=== PATIENT | female | born 1995 | race Caucasian/White ===

== ENCOUNTER 2019-06-04 22:49 | Inpatient (IN) | payer BC ==
[~2019-06-04] VITALS: Ht 167.6 cm; Wt 53.8 kg
[2019-06-05 02:30] VITALS: BP 99/55
--- NOTE | 2019-06-05 02:45 | NUR ---
NURSE NOTES: Received patient as a direct admission from [facility]. Patient arrived via gurney. Patient awake and alert x4. On room air with no signs of distress or SOB. Skin intact. Belongings checked alongside patient and accounted for. Belongings list signed by patient. Patient is ambulatory with a steady gate. IV noted in the Right AC 20g. No C/O pain at this time. Bed locked and in lowest position. Call light in reach. Will continue to monitor. Contacted Dr. Lerma for admission orders - awaiting callback. VS -- BP:99/55 O2:98% HR:97 Temp:98.1 RR:20
[2019-06-05] MEDS ORDERED: RITALIN5 MG ORAL (02:56)
[2019-06-05 04:00] VITALS: BP 111/68
--- NOTE | 2019-06-05 04:40 | NUR ---
NURSE NOTES: Patient's temp 100.8. Left message for Dr. Lerma. Awaiting callback.
[2019-06-05] MEDS ORDERED: RITALIN10 MG ORAL (06:26)
--- NOTE | 2019-06-05 06:55 | NUR ---
NURSE NOTES: Orders received from Dr. Lerma. Will follow plan of care.
--- NOTE | 2019-06-05 07:12 | NUR ---
HAND-OFF: Report given to Pacheco Capone RN.
[2019-06-05 07:39] LABS: BASOPHILS % (AUTO) 0.3 % (0.0-2.0); EOSINOPHILS % (AUTO) 0.1 % (0.0-3.0); HEMATOCRIT 33.4 % (37.0-47.0); HEMOGLOBIN 11.2 G/DL (12.0-16.0); LYMPHOCYTES % (AUTO) 13.7 % (20.0-45.0); MEAN CORPUSCULAR VOLUME 79 FL (80-99); MONOCYTES % (AUTO) 11.8 % (1.0-10.0); NEUTROPHILS % (AUTO) 74.1 % (45.0-75.0); PLATELET COUNT 162 K/UL (150-450); RED BLOOD COUNT 4.21 M/UL (4.20-5.40); RED CELL DISTRIBUTION WIDTH 12.4 % (11.6-14.8); WHITE BLOOD COUNT 3.7 K/UL (4.8-10.8)
[2019-06-05 07:57] LABS: ALANINE AMINOTRANSFERASE 23 U/L (12-78); ALBUMIN 3.2 G/DL (3.4-5.0); ALBUMIN/GLOBULIN RATIO 1.1 (1.0-2.7); ALKALINE PHOSPHATASE 44 U/L (46-116); ANION GAP 10 mmol/L (5-15); ASPARTATE AMINO TRANSFERASE 30 U/L (15-37); BILIRUBIN,TOTAL 0.4 MG/DL (0.2-1.0); BLOOD UREA NITROGEN 11 mg/dL (7-18); CALCIUM 7.8 MG/DL (8.5-10.1); CARBON DIOXIDE 22 MMOL/L (21-32); CHLORIDE 107 MMOL/L (98-107); CREATININE 0.9 MG/DL (0.55-1.30); PHOSPHORUS 3.3 MG/DL (2.5-4.9); POTASSIUM 4.1 MMOL/L (3.5-5.1); SODIUM 139 MMOL/L (136-145)
[2019-06-05 08:00] VITALS: BP 110/68
[2019-06-05] MEDS: Oseltamivir 75mg cap ORAL SCH ×2 (08:25→20:05)
[2019-06-05] MEDS: cefTRIAXone 1gm/D5W 55ml IVPB SCH ×2 (08:26)
[2019-06-05] MEDS: D5 1/2NS w/KCl 20mEq 1,000 ML IV SCH ×2 (08:26→18:20)
--- NOTE | 2019-06-05 10:00 | NUR ---
NURSE NOTES: PT WAS EDUCATED ON NEW MEDICATION ORDERS AND PT VERBALIZED UNDERSTANDING. IN NO APPARENT DISTRESS AT THIS TIME. EDUCATED ON HOW TO USE CALL LIGHT FOR ASSISTANCE. PT VERBALIZED UNDERSTANDING. BED IN LOWEST POSITION WITH BEDSIDE RAILS X2 RAISED. PT IS AMBULATORY WITH STEADY GAIT. WILL CONTINUE TO MONITOR.
[2019-06-05 12:00] VITALS: BP 108/68
[2019-06-05] MEDS: HYDROcodone/Acetamin 5/325 tab ORAL PRN ×2 (12:57→22:57)
--- NOTE | 2019-06-05 13:29 | Consultation ---
History of Present Illness General Date patient seen: Jun 05, 2019 Present Illness HPI 23 year old female with hx of ADD, drug abuse presented to [facility], with flu like symptoms, headache, running nose, fatigue, fever. He was diagnosed to have presumptive flu and transferred to [place] for further treatment. Allergies: Coded Allergies: No Known Allergies (Unverified , 05/16/19) Medication History Scheduled Methylphenidate Hcl* (Ritalin*), 10 MG ORAL TWICE A DAY, (Reported) Discontinued Medications Methylphenidate Hcl* (Ritalin*), Unknown Dose ORAL DAILY, (Reported) Discontinued Reason: Prescription changed Patient History Healthcare decision maker Resuscitation status Advanced Directive on File Past Medical/Surgical History Past Medical/Surgical History: (1) Drug abuse (2) ADD (attention deficit disorder) Review of Systems All Other Systems: negative except mentioned in HPI Physical Exam General Appearance: thin Lines, tubes and drains: peripheral HEENT: normocephalic, atraumatic Neck: non-tender, normal alignment Respiratory/Chest: chest wall non-tender, lungs clear Breasts: no masses Cardiovascular/Chest: normal peripheral pulses Abdomen: normal bowel sounds, non tender Genitourinary/Rectal: normal genital exam Extremities: normal range of motion Skin Exam: normal pigmentation 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 Last 24 Hour Vital Signs Date Time Temp Pulse Resp B/P (MAP) Pulse Ox O2 Delivery O2 Flow Rate FiO2 06/05/19 12:00 100.0 101 18 108/68 (81) 99 06/05/19 09:00 Room Air 06/05/19 08:00 101.5 106 18 110/68 (82) 95 06/05/19 07:42 101.5 06/05/19 04:00 100.8 103 20 111/68 (82) 99 06/05/19 02:33 Room Air 06/05/19 02:30 98.1 97 20 99/55 (70) 98 Intake and Output 06/04/19 06/05/19 19:00 07:00 Intake Total 100 ml Balance 100 ml Intake Oral 100 ml Laboratory Tests Test 06/05/19 07:25 White Blood Count 3.7 K/UL (4.8-10.8) L Red Blood Count 4.21 M/UL (4.20-5.40) Hemoglobin 11.2 G/DL (12.0-16.0) L Hematocrit 33.4 % (37.0-47.0) L Mean Corpuscular Volume 79 FL (80-99) L Mean Corpuscular Hemoglobin 26.6 PG (27.0-31.0) L Mean Corpuscular Hemoglobin Concent 33.6 G/DL (32.0-36.0) Red Cell Distribution Width 12.4 % (11.6-14.8) Platelet Count 162 K/UL (150-450) Mean Platelet Volume 7.3 FL (6.5-10.1) Neutrophils (%) (Auto) 74.1 % (45.0-75.0) Lymphocytes (%) (Auto) 13.7 % (20.0-45.0) L Monocytes (%) (Auto) 11.8 % (1.0-10.0) H Eosinophils (%) (Auto) 0.1 % (0.0-3.0) Basophils (%) (Auto) 0.3 % (0.0-2.0) Sodium Level 139 MMOL/L (136-145) Potassium Level 4.1 MMOL/L (3.5-5.1) Chloride Level 107 MMOL/L (98-107) Carbon Dioxide Level 22 MMOL/L (21-32) Anion Gap 10 mmol/L (5-15) Blood Urea Nitrogen 11 mg/dL (7-18) Creatinine 0.9 MG/DL (0.55-1.30) Estimat Glomerular Filtration Rate > 60 mL/min (>60) Glucose Level 94 MG/DL (74-106) Calcium Level 7.8 MG/DL (8.5-10.1) L Phosphorus Level 3.3 MG/DL (2.5-4.9) Magnesium Level 1.8 MG/DL (1.8-2.4) Total Bilirubin 0.4 MG/DL (0.2-1.0) Aspartate Amino Transf (AST/SGOT) 30 U/L (15-37) Alanine Aminotransferase (ALT/SGPT) 23 U/L (12-78) Alkaline Phosphatase 44 U/L (46-116) L Total Protein 6.1 G/DL (6.4-8.2) L Albumin 3.2 G/DL (3.4-5.0) L Globulin 2.9 g/dL Albumin/Globulin Ratio 1.1 (1.0-2.7) Height (Feet): 5 Height (Inches): 6.00 Weight (Pounds): 119 Medications Current Medications Medications (Trade) Dose Ordered Sig/Jillian Route PRN Reason Start Time Stop Time Status Last Admin Dose Admin Acetaminophen (Tylenol) 650 mg Q6H PRN ORAL Mild Pain/Temp > 100.5 06/05/19 07:00 07/05/19 06:59 06/05/19 07:12 Acetaminophen/ Hydrocodone Bitart ([place] 5/325) 1 tab Q6H PRN ORAL Pain 4-10 06/05/19 07:00 06/12/19 06:59 06/05/19 12:57 Ceftriaxone Sodium 1 gm/ Dextrose 55 ml @ 110 mls/hr Q24H IVPB 06/05/19 09:00 06/12/19 08:59 06/05/19 08:26 Dextrose/ Electrolytes 1,000 ml @ 100 mls/hr Q10H IV 06/05/19 08:00 07/05/19 07:59 06/05/19 08:26 Ondansetron HCl (Zofran) 4 mg Q4H PRN IVP Nausea & Vomiting 06/05/19 07:00 07/05/19 06:59 06/05/19 12:53 Oseltamivir Phosphate (Tamiflu) 75 mg Q12HR ORAL 06/05/19 09:00 06/10/19 08:59 06/05/19 08:25 Assessment/Plan Problem List: (1) Pneumonia ICD Codes: J18.9 - Pneumonia, unspecified organism SNOMED: 352153172 (2) ADD (attention deficit disorder) ICD Codes: F98.8 - Other specified behavioral and emotional disorders with onset usually occurring in childhood and adolescence SNOMED: 74710138 (3) Drug abuse ICD Codes: F19.10 - Other psychoactive substance abuse, uncomplicated SNOMED: 56566627 (4) Influenza A ICD Codes: J10.1 - Influenza due to other identified influenza virus with other respiratory manifestations SNOMED: 439258221 Assessment/Plan: respiratory treatment check sputum repeat cxr in am symptomatic treatment Donna Pappas MD Jun 05, 2019 13:29
[2019-06-05] MEDS ORDERED: Albuterol/Ipratropium 3ml neb HHN PRN (13:30)
[2019-06-05 16:00] VITALS: BP 112/61
--- NOTE | 2019-06-05 16:15 | Consultation ---
History of Present Illness General Date patient seen: Jun 05, 2019 Present Illness HPI 23 y/o F with hx of AHDD, anxiety disorder is transferred from [place] ED to [place] on 06/05 with fever, myalgias after taking Ectasy the night prior. CXR at [facility] showed no infiltrate (prelim read). Reported INfluenza positive, did not saw test results on records sent. Denied CP, abd pain, nausea, vomiting, diarrhea or urinary complaints. Allergies: Coded Allergies: No Known Allergies (Unverified , 05/16/19) Medication History Scheduled Methylphenidate Hcl* (Ritalin*), 10 MG ORAL TWICE A DAY, (Reported) Discontinued Medications Methylphenidate Hcl* (Ritalin*), Unknown Dose ORAL DAILY, (Reported) Discontinued Reason: Prescription changed Patient History Healthcare decision maker Resuscitation status Advanced Directive on File Patient History Narrative Pmhx: as above Shx: reviewed Fhx: non contributory Physical Exam Last 24 Hour Vital Signs Date Time Temp Pulse Resp B/P (MAP) Pulse Ox O2 Delivery O2 Flow Rate FiO2 06/05/19 12:00 100.0 101 18 108/68 (81) 99 06/05/19 09:00 Room Air 06/05/19 08:00 101.5 106 18 110/68 (82) 95 06/05/19 07:42 101.5 06/05/19 04:00 100.8 103 20 111/68 (82) 99 06/05/19 02:33 Room Air 06/05/19 02:30 98.1 97 20 99/55 (70) 98 Intake and Output 06/04/19 06/05/19 19:00 07:00 Intake Total 100 ml Balance 100 ml Intake Oral 100 ml Laboratory Tests Test 06/05/19 07:25 White Blood Count 3.7 K/UL (4.8-10.8) L Red Blood Count 4.21 M/UL (4.20-5.40) Hemoglobin 11.2 G/DL (12.0-16.0) L Hematocrit 33.4 % (37.0-47.0) L Mean Corpuscular Volume 79 FL (80-99) L Mean Corpuscular Hemoglobin 26.6 PG (27.0-31.0) L Mean Corpuscular Hemoglobin Concent 33.6 G/DL (32.0-36.0) Red Cell Distribution Width 12.4 % (11.6-14.8) Platelet Count 162 K/UL (150-450) Mean Platelet Volume 7.3 FL (6.5-10.1) Neutrophils (%) (Auto) 74.1 % (45.0-75.0) Lymphocytes (%) (Auto) 13.7 % (20.0-45.0) L Monocytes (%) (Auto) 11.8 % (1.0-10.0) H Eosinophils (%) (Auto) 0.1 % (0.0-3.0) Basophils (%) (Auto) 0.3 % (0.0-2.0) Sodium Level 139 MMOL/L (136-145) Potassium Level 4.1 MMOL/L (3.5-5.1) Chloride Level 107 MMOL/L (98-107) Carbon Dioxide Level 22 MMOL/L (21-32) Anion Gap 10 mmol/L (5-15) Blood Urea Nitrogen 11 mg/dL (7-18) Creatinine 0.9 MG/DL (0.55-1.30) Estimat Glomerular Filtration Rate > 60 mL/min (>60) Glucose Level 94 MG/DL (74-106) Calcium Level 7.8 MG/DL (8.5-10.1) L Phosphorus Level 3.3 MG/DL (2.5-4.9) Magnesium Level 1.8 MG/DL (1.8-2.4) Total Bilirubin 0.4 MG/DL (0.2-1.0) Aspartate Amino Transf (AST/SGOT) 30 U/L (15-37) Alanine Aminotransferase (ALT/SGPT) 23 U/L (12-78) Alkaline Phosphatase 44 U/L (46-116) L Total Protein 6.1 G/DL (6.4-8.2) L Albumin 3.2 G/DL (3.4-5.0) L Globulin 2.9 g/dL Albumin/Globulin Ratio 1.1 (1.0-2.7) Height (Feet): 5 Height (Inches): 6.00 Weight (Pounds): 119 Medications Current Medications Medications (Trade) Dose Ordered Sig/Jillian Route PRN Reason Start Time Stop Time Status Last Admin Dose Admin Acetaminophen (Tylenol) 650 mg Q6H PRN ORAL Mild Pain/Temp > 100.5 2/3/20 07:00 07/05/19 06:59 06/05/19 14:46 Acetaminophen/ Hydrocodone Bitart ([place] 5/325) 1 tab Q6H PRN ORAL Pain 4-10 06/05/19 07:00 06/12/19 06:59 06/05/19 12:57 Albuterol/ Ipratropium (Albuterol/ Ipratropium) 3 ml Q4H PRN HHN Shortness of Breath 06/05/19 13:30 06/10/19 13:29 Ceftriaxone Sodium 1 gm/ Dextrose 55 ml @ 110 mls/hr Q24H IVPB 06/05/19 09:00 06/12/19 08:59 06/05/19 08:26 Dextrose/ Electrolytes 1,000 ml @ 100 mls/hr Q10H IV 06/05/19 08:00 07/05/19 07:59 06/05/19 08:26 Ondansetron HCl (Zofran) 4 mg Q4H PRN IVP Nausea & Vomiting 06/05/19 07:00 07/05/19 06:59 06/05/19 12:53 Oseltamivir Phosphate (Tamiflu) 75 mg Q12HR ORAL 06/05/19 09:00 06/10/19 08:59 06/05/19 08:25 Promethazine HCl/ Codeine (Phenergan with Codeine) 5 ml Q4H PRN ORAL For Cough 06/05/19 13:30 07/05/19 13:29 Assessment/Plan Assessment/Plan: Abx: Tamiflu 06/05- Ceftriaxone 06/05- Assessment: Sepsis Influenza (per [facility] report) Fever Mild leukopenia -u/a (at [facility]) neg -CXR (at [facility])- prelim read no infiltrates Mild anemia UDS + methamphetamines, amphetamines AHDD anxiety disorder Plan: -Continue Tamiflu and Ceftriaxone #1 -f/u cx -Monitor CBC/CMP, temperatures -Bcx, influenza sc, CXR Thank you for this consultation. Will continue to follow along with you. Discussed with Radha Chery M.D. Jun 05, 2019 16:15
--- NOTE | 2019-06-05 16:54 | NUR ---
CASE MANAGEMENT: INITIAL REVIEW 23 YR OLD FEMALE TRANSFER FROM [facility] CC;MYALGIAS SI.INFLUENZA. 101.5 110 20 99/55 95% ON RA WBC 3.7 H/H 11.2/33.4 IS;ROCEPHIN IV Q24 HRS TAMIFLU PO Q12 HRS DUO NEB HHN Q4 HRS PRN IVF D5 @ 100 ML/HR PHENERGAN PO Q4 HRS PRN ADMITTED TO MED SURG MED SURG STATUS DCP;HOME
--- NOTE | 2019-06-05 19:01 | History & Physical ---
History and Physical History & Physicial Dictated for Int Med-DR Lerma no. [id number]. Ryan Roca MD Jun 05, 2019 19:01
--- NOTE | 2019-06-05 19:27 | NUR ---
HAND-OFF: Report given to Larissa ARROYO RN.
[2019-06-05 20:00] VITALS: BP 103/58
--- NOTE | 2019-06-05 20:00 | NUR ---
NURSE NOTES: Received patient asleep in bed, easily arousable, no s/s of acute distress though patient feeling fatigued. C/o mild pain at this time, will administer pain medication per MD order. IV access patent and asymptomatic running IVF maintenance. Bed low and locked, patient wearing non slip socks. Droplet precaution noted. Will monitor temperatures closely.
--- NOTE | 2019-06-05 21:15 | History and Physical Report ---
DATE OF ADMISSION: 06/05/2019 CHIEF COMPLAINT: The patient is a 23-year-old female, who presents with a chief complaint of fever and myalgias. HISTORY OF PRESENT ILLNESS: Apparently began on June 04, 2019. The patient took some ecstasy. The patient initially presented to [facility] Emergency Room complaining of fever and body aches. Chest x-ray at [facility] was reported as no acute disease. The patient is transferred to [facility] for insurance purposes. The patient is admitted with fever and myalgias to rule out influenza versus pneumonia. REVIEW OF SYSTEMS: CONSTITUTIONAL: The patient denies weight loss or weight gain. The patient complains of fevers and chills as above. HEENT: The patient denies ear or throat pain. The patient denies headache. CARDIOVASCULAR: The patient denies palpitations or chest pain. CHEST: The patient denies wheeze or shortness of breath. ABDOMINAL: The patient denies nausea, vomiting, diarrhea, or constipation. GENITOURINARY: The patient denies dysuria or increased frequency of urination. NEUROMUSCULAR: The patient denies seizures. The patient does complain of generalized body aches as above. PAST MEDICAL HISTORY: Significant for attention deficit hyperactivity disorder. PAST SURGICAL HISTORY: The patient denies. CURRENT MEDICATIONS: Ritalin 10 mg p.o. twice daily. ALLERGIES: No known drug allergies. SOCIAL HISTORY: The patient is single. The patient denies tobacco use. The patient admits to social alcohol use. PHYSICAL EXAMINATION: VITAL SIGNS: Temperature maximum 101.5 degrees Fahrenheit, respirations 18, pulse 106, and blood pressure 110/68. GENERAL: The patient is a well-developed and well-nourished female, in no apparent distress. HEENT: Eyes, pupils are equal and responsive to light and accommodation. Extraocular movements are intact. NECK: Supple without lymphadenopathy. CHEST: Lungs are clear to auscultation bilaterally without wheezes or rales. CARDIOVASCULAR: Regular rhythm and rate. S1 and S2 are normal without murmurs, rubs, or gallops. ABDOMEN: Soft, nontender, and nondistended. Positive bowel sounds. No evidence of hepatosplenomegaly. Currently, no rebound or guarding noted. EXTREMITIES: Negative for clubbing, cyanosis, or edema. RECTAL/GENITAL: Refused. NEUROLOGIC: Cranial nerves II through XII are grossly intact without focal deficits. Motor strength is 5/5 bilaterally. Deep tendon reflexes are 2+ plantar. LABORATORY STUDIES: WBC 3.7, hemoglobin 11.2, hematocrit 33.4, and platelets 162,000. Sodium 139, potassium 4.1, chloride 107, CO2 22, BUN 11, creatinine 0.9, and glucose 94. A nasal swab for influenza A and B were both reported as negative. ASSESSMENT: This is a 23-year-old female. 1. Fever. 2. Myalgia. 3. Attention deficit hyperactivity disorder. TREATMENT: 1. Fever/myalgia. Blood cultures are pending. An Infectious Disease consultation has been obtained with Dr. Arrington. The patient has been started empirically on ceftriaxone and Tamiflu . We will follow recommendations of Infectious Disease. 2. Attention deficit hyperactivity disorder. Ritalin has been held during the hospitalization. 3. Polysubstance abuse. A urine was positive for methamphetamine and amphetamine. Ryan Roca M.D. DR: TK JOB#: [id number] CC:
[2019-06-06] VITALS: BP 105/59
[2019-06-06 04:00] VITALS: BP 118/71
[2019-06-06] MEDS: D5 1/2NS w/KCl 20mEq 1,000 ML IV SCH ×2 (04:00→13:34)
[2019-06-06] MEDS: HYDROcodone/Acetamin 5/325 tab ORAL PRN ×2 (06:17→17:56)
--- NOTE | 2019-06-06 07:30 | NUR ---
HAND-OFF: Report given to GEMINI Bergman.
[2019-06-06 08:00] VITALS: BP 102/62
--- NOTE | 2019-06-06 08:04 | NUR ---
NURSE NOTES: PT AXOX4, CALM, RESTING IN BED. PT STATED HER COUGHING IS STARTING TO BOTHER HER AND THE ROOM WAS VERY COLD LAST NIGHT. OTHERWISE IN NO APPARENT DISTRESS AT THIS TIME. WILL CONTINUE TO MONITOR.
[2019-06-06] MEDS: cefTRIAXone 1gm/D5W 55ml IVPB SCH ×2 (08:27)
[2019-06-06] MEDS: Oseltamivir 75mg cap ORAL SCH ×2 (08:27→20:00)
[2019-06-06] MEDS: Promethazine/Codeine 5ml UD ORAL PRN ×2 (08:27→21:01)
[2019-06-06 08:36] LABS: HEMATOCRIT 34.3 % (37.0-47.0); HEMOGLOBIN 11.8 G/DL (12.0-16.0); MEAN CORPUSCULAR VOLUME 79 FL (80-99); PLATELET COUNT 131 K/UL (150-450); RED BLOOD COUNT 4.34 M/UL (4.20-5.40); RED CELL DISTRIBUTION WIDTH 12.4 % (11.6-14.8); WHITE BLOOD COUNT 2.2 K/UL (4.8-10.8)
[2019-06-06 08:54] LABS: ALANINE AMINOTRANSFERASE 19 U/L (12-78); ALBUMIN 3.1 G/DL (3.4-5.0); ALKALINE PHOSPHATASE 43 U/L (46-116); ANION GAP 8 mmol/L (5-15); ASPARTATE AMINO TRANSFERASE 27 U/L (15-37); BILIRUBIN,TOTAL 0.2 MG/DL (0.2-1.0); BLOOD UREA NITROGEN 8 mg/dL (7-18); CALCIUM 8.2 MG/DL (8.5-10.1); CARBON DIOXIDE 27 MMOL/L (21-32); CHLORIDE 106 MMOL/L (98-107); CREATININE 0.9 MG/DL (0.55-1.30); PHOSPHORUS 3.1 MG/DL (2.5-4.9); POTASSIUM 3.6 MMOL/L (3.5-5.1); SODIUM 141 MMOL/L (136-145)
--- NOTE | 2019-06-06 09:56 | NUR ---
RADIOLOGY DEPT., CHEST X-RAY DONE.-P.DYE
--- NOTE | 2019-06-06 10:43 | Infectious Diseases Prog Note ---
Assessment/Plan Assessment/Plan Abx: Tamiflu 2/3- Ceftriaxone 2/3- Assessment: Sepsis Influenza (per [facility] report) -influenza sc (at [facility]) neg Fever Mild leukopenia -u/a (at [facility]) neg -CXR (at [facility])- prelim read no infiltrates Mild anemia UDS + methamphetamines, amphetamines AHDD anxiety disorder Plan: -Continue Tamiflu and Ceftriaxone #2 -upon discharge will continue Tamiflu to complete 5 days of treatment -f/u cx -Monitor CBC/CMP, temperatures -f/u Bcx, CXR Thank you for this consultation. Will continue to follow along with you. Discussed with RN. Subjective Allergies: Coded Allergies: No Known Allergies (Unverified , 05/16/19) Objective Vital Signs Last 24 Hour Vital Signs Date Time Temp Pulse Resp B/P (MAP) Pulse Ox O2 Delivery O2 Flow Rate FiO2 06/06/19 08:00 98.8 95 20 102/62 (75) 100 06/06/19 07:32 85 18 98 82 18 98 06/06/19 07:32 82 18 98 Room Air 21 06/06/19 06:47 98.8 06/06/19 04:00 98.8 79 19 118/71 (87) 97 06/06/19 00:00 99.0 97 19 105/59 (74) 97 06/05/19 23:42 Room Air 21 06/05/19 23:42 Room Air 21 06/05/19 22:00 Room Air 06/05/19 21:00 90 18 97 Room Air 21 06/05/19 20:59 Room Air 21 06/05/19 20:59 Room Air 21 06/05/19 20:00 98.6 97 19 103/58 (73) 97 06/05/19 16:12 108 20 97 Room Air 21 06/05/19 16:10 110 20 97 Room Air 21 06/05/19 16:00 100.6 107 19 112/61 (78) 97 06/05/19 15:16 100.6 06/05/19 12:00 100.0 101 18 108/68 (81) 99 Height (Feet): 5 Height (Inches): 6.00 Weight (Pounds): 119 Objective GENERAL: The patient is a well-developed and well-nourished female, in no apparent distress. HEENT: Eyes, pupils are equal and responsive to light and accommodation. Extraocular movements are intact. NECK: Supple without lymphadenopathy. CHEST: Lungs are clear to auscultation bilaterally without wheezes or rales. CARDIOVASCULAR: Regular rhythm and rate. S1 and S2 are normal without murmurs, rubs, or gallops. ABDOMEN: Soft, nontender, and nondistended. Positive bowel sounds. No evidence of hepatosplenomegaly. Currently, no rebound or guarding noted. EXTREMITIES: Negative for clubbing, cyanosis, or edema. RECTAL/GENITAL: Refused. NEUROLOGIC: Cranial nerves II through XII are grossly intact without focal deficits. Motor strength is 5/5 bilaterally. Deep tendon reflexes are 2+ plantar. Microbiology Date/Time Source Procedure Growth Status 06/05/19 16:30 Nasopharynx - Final Complete 06/05/19 16:30 Nasopharynx - Final Complete Laboratory Tests Test 06/06/19 07:30 White Blood Count 2.2 K/UL (4.8-10.8) L Red Blood Count 4.34 M/UL (4.20-5.40) Hemoglobin 11.8 G/DL (12.0-16.0) L Hematocrit 34.3 % (37.0-47.0) L Mean Corpuscular Volume 79 FL (80-99) L Mean Corpuscular Hemoglobin 27.1 PG (27.0-31.0) Mean Corpuscular Hemoglobin Concent 34.4 G/DL (32.0-36.0) Red Cell Distribution Width 12.4 % (11.6-14.8) Platelet Count 131 K/UL (150-450) L Mean Platelet Volume 7.1 FL (6.5-10.1) Neutrophils (%) (Auto) % (45.0-75.0) Lymphocytes (%) (Auto) % (20.0-45.0) Monocytes (%) (Auto) % (1.0-10.0) Eosinophils (%) (Auto) % (0.0-3.0) Basophils (%) (Auto) % (0.0-2.0) Neutrophils % (Manual) Pending Lymphocytes % (Manual) Pending Platelet Estimate Pending Platelet Morphology Pending Erythrocyte Sedimentation Rate 14 MM/HR (0-20) Sodium Level 141 MMOL/L (136-145) Potassium Level 3.6 MMOL/L (3.5-5.1) Chloride Level 106 MMOL/L (98-107) Carbon Dioxide Level 27 MMOL/L (21-32) Anion Gap 8 mmol/L (5-15) Blood Urea Nitrogen 8 mg/dL (7-18) Creatinine 0.9 MG/DL (0.55-1.30) Estimat Glomerular Filtration Rate > 60 mL/min (>60) Glucose Level 127 MG/DL (74-106) H Calcium Level 8.2 MG/DL (8.5-10.1) L Phosphorus Level 3.1 MG/DL (2.5-4.9) Magnesium Level 1.6 MG/DL (1.8-2.4) L Total Bilirubin 0.2 MG/DL (0.2-1.0) Aspartate Amino Transf (AST/SGOT) 27 U/L (15-37) Alanine Aminotransferase (ALT/SGPT) 19 U/L (12-78) Alkaline Phosphatase 43 U/L (46-116) L C-Reactive Protein, Quantitative 1.6 mg/dL (0.00-0.90) H Pro-B-Type Natriuretic Peptide 121 pg/mL (0-125) Total Protein 6.2 G/DL (6.4-8.2) L Albumin 3.1 G/DL (3.4-5.0) L Globulin 3.1 g/dL Albumin/Globulin Ratio 1.0 (1.0-2.7) Current Medications Medications (Trade) Dose Ordered Sig/Jillian Route PRN Reason Start Time Stop Time Status Last Admin Dose Admin Acetaminophen (Tylenol) 650 mg Q6H PRN ORAL Mild Pain/Temp > 100.5 06/05/19 07:00 07/05/19 06:59 06/05/19 14:46 Acetaminophen/ Hydrocodone Bitart ([place] 5/325) 1 tab Q6H PRN ORAL Pain 4-10 06/05/19 07:00 06/12/19 06:59 06/06/19 06:17 Albuterol/ Ipratropium (Albuterol/ Ipratropium) 3 ml Q4H PRN HHN Shortness of Breath 06/05/19 13:30 06/10/19 13:29 06/06/19 07:39 Ceftriaxone Sodium 1 gm/ Dextrose 55 ml @ 110 mls/hr Q24H IVPB 06/05/19 09:00 06/12/19 08:59 06/06/19 08:27 Dextrose/ Electrolytes 1,000 ml @ 100 mls/hr Q10H IV 06/05/19 08:00 07/05/19 07:59 06/06/19 04:00 Ondansetron HCl (Zofran) 4 mg Q4H PRN IVP Nausea & Vomiting 06/05/19 07:00 07/05/19 06:59 06/06/19 06:16 Oseltamivir Phosphate (Tamiflu) 75 mg Q12HR ORAL 06/05/19 09:00 06/10/19 08:59 06/06/19 08:27 Promethazine HCl/ Codeine (Phenergan with Codeine) 5 ml Q4H PRN ORAL For Cough 06/05/19 13:30 07/05/19 13:29 06/06/19 08:27 Radha Arrington M.D. Jun 06, 2019 10:43
--- NOTE | 2019-06-06 11:32 | Diagnostic Imaging Report ---
Indication: Dyspnea Comparison: None A single view chest radiograph was obtained. Findings: Cardiomediastinal appearance is within normal limits for age. The lungs are clear. Pulmonary vascularity is appropriate. The diaphragmatic contour is smooth and costophrenic angles are sharp. No pleural effusions are identified. The bones are unremarkable. Impression: No acute findings
[2019-06-06 12:00] VITALS: BP 102/64
--- NOTE | 2019-06-06 12:32 | Pulmonology Progress Note ---
Assessment/Plan Problems: (1) Pneumonia (2) ADD (attention deficit disorder) (3) Drug abuse (4) Influenza A Assessment/Plan slightly improving respiratory treatment check sputum antitussives respiratory isolation. Subjective ROS Limited/Unobtainable: No Constitutional: Reports: no symptoms HEENT: Repors: no symptoms Respiratory: Reports: no symptoms Allergies: Coded Allergies: No Known Allergies (Unverified , 05/16/19) Objective Last 24 Hour Vital Signs Date Time Temp Pulse Resp B/P (MAP) Pulse Ox O2 Delivery O2 Flow Rate FiO2 06/06/19 12:00 98.0 86 20 102/64 (77) 97 06/06/19 09:00 Room Air 06/06/19 08:00 98.8 95 20 102/62 (75) 100 06/06/19 07:32 85 18 98 82 18 98 06/06/19 07:32 82 18 98 Room Air 21 06/06/19 06:47 98.8 06/06/19 04:00 98.8 79 19 118/71 (87) 97 06/06/19 00:00 99.0 97 19 105/59 (74) 97 06/05/19 23:42 Room Air 21 06/05/19 23:42 Room Air 21 06/05/19 22:00 Room Air 06/05/19 21:00 90 18 97 Room Air 21 06/05/19 20:59 Room Air 21 06/05/19 20:59 Room Air 21 06/05/19 20:00 98.6 97 19 103/58 (73) 97 06/05/19 16:12 108 20 97 Room Air 06/05/19 16:10 110 20 97 Room Air 06/05/19 16:00 100.6 107 19 112/61 (78) 97 06/05/19 15:16 100.6 Intake and Output 06/05/19 06/06/19 19:00 07:00 Intake Total 1095 ml 660 ml Balance 1095 ml 660 ml Intake Oral 240 ml 360 ml IV Total 855 ml 300 ml # Voids 1 General Appearance: WD/WN HEENT: normocephalic, atraumatic Respiratory/Chest: chest wall non-tender, lungs clear Cardiovascular: normal peripheral pulses, normal rate Abdomen: normal bowel sounds, soft, non tender Genitourinary: normal external genitalia Extremities: no cyanosis Skin: no rash Neurologic/Psychiatric: normal mood/affect Microbiology Date/Time Source Procedure Growth Status 06/05/19 16:30 Nasopharynx - Final Complete 06/05/19 16:30 Nasopharynx - Final Complete Laboratory Tests 06/06/19 07:30: White Blood Count 2.2L, Red Blood Count 4.34, Hemoglobin 11.8L, Hematocrit 34.3L , Mean Corpuscular Volume 79L, Mean Corpuscular Hemoglobin 27.1, Mean Corpuscular Hemoglobin Concent 34.4, Red Cell Distribution Width 12.4, Platelet Count 131L, Mean Platelet Volume 7.1, Neutrophils (%) (Auto) , Lymphocytes (%) ( Auto) , Monocytes (%) (Auto) , Eosinophils (%) (Auto) , Basophils (%) (Auto) , Differential Total Cells Counted 100, Neutrophils % (Manual) 37L, Lymphocytes % (Manual) 54H, Monocytes % (Manual) 8, Eosinophils % (Manual) 1, Basophils % ( Manual) 0, Band Neutrophils 0, Platelet Estimate DecreasedL, Platelet Morphology Normal, Anisocytosis 1+, Microcytosis 1+, Erythrocyte Sedimentation Rate 14, Sodium Level 141, Potassium Level 3.6, Chloride Level 106, Carbon Dioxide Level 27, Anion Gap 8, Blood Urea Nitrogen 8, Creatinine 0.9, Estimat Glomerular Filtration Rate > 60, Glucose Level 127H, Calcium Level 8.2L, Phosphorus Level 3.1, Magnesium Level 1.6L, Total Bilirubin 0.2, Aspartate Amino Transf (AST/SGOT) 27, Alanine Aminotransferase (ALT/SGPT) 19, Alkaline Phosphatase 43L, C-Reactive Protein, Quantitative 1.6H, Pro-B-Type Natriuretic Peptide 121, Total Protein 6.2L, Albumin 3.1L, Globulin 3.1, Albumin/Globulin Ratio 1.0 Current Medications Medications (Trade) Dose Ordered Sig/Jillian Route PRN Reason Start Time Stop Time Status Last Admin Dose Admin Acetaminophen (Tylenol) 650 mg Q6H PRN ORAL Mild Pain/Temp > 100.5 06/05/19 07:00 07/05/19 06:59 06/05/19 14:46 Acetaminophen/ Hydrocodone Bitart ([place] 5/325) 1 tab Q6H PRN ORAL Pain 4-10 06/05/19 07:00 06/12/19 06:59 06/06/19 06:17 Albuterol/ Ipratropium (Albuterol/ Ipratropium) 3 ml Q4H PRN HHN Shortness of Breath 06/05/19 13:30 06/10/19 13:29 06/06/19 07:39 Ceftriaxone Sodium 1 gm/ Dextrose 55 ml @ 110 mls/hr Q24H IVPB 06/05/19 09:00 06/12/19 08:59 06/06/19 08:27 Dextrose/ Electrolytes 1,000 ml @ 100 mls/hr Q10H IV 06/05/19 08:00 07/05/19 07:59 06/06/19 04:00 Ondansetron HCl (Zofran) 4 mg Q4H PRN IVP Nausea & Vomiting 06/05/19 07:00 07/05/19 06:59 06/06/19 06:16 Oseltamivir Phosphate (Tamiflu) 75 mg Q12HR ORAL 06/05/19 09:00 06/10/19 08:59 06/06/19 08:27 Promethazine HCl/ Codeine (Phenergan with Codeine) 5 ml Q4H PRN ORAL For Cough 06/05/19 13:30 07/05/19 13:29 06/06/19 08:27 Donna Pappas MD Jun 06, 2019 12:32
[2019-06-06 16:00] VITALS: BP 103/63
--- NOTE | 2019-06-06 17:07 | Internal Med Progress Note ---
Subjective Date of Service: Jun 06, 2019 Physician Name Ryan Roca Attending Physician Ravi Lerma MD Current Medications Medications (Trade) Dose Ordered Sig/Jillian Route PRN Reason Start Time Stop Time Status Last Admin Dose Admin Acetaminophen (Tylenol) 650 mg Q6H PRN ORAL Mild Pain/Temp > 100.5 06/05/19 07:00 07/05/19 06:59 06/05/19 14:46 Acetaminophen/ Hydrocodone Bitart ([place] 5/325) 1 tab Q6H PRN ORAL Pain 4-10 06/05/19 07:00 06/12/19 06:59 06/06/19 06:17 Albuterol/ Ipratropium (Albuterol/ Ipratropium) 3 ml Q4H PRN HHN Shortness of Breath 06/05/19 13:30 06/10/19 13:29 06/06/19 07:39 Ceftriaxone Sodium 1 gm/ Dextrose 55 ml @ 110 mls/hr Q24H IVPB 06/05/19 09:00 06/12/19 08:59 06/06/19 08:27 Dextrose/ Electrolytes 1,000 ml @ 100 mls/hr Q10H IV 06/05/19 08:00 07/05/19 07:59 06/06/19 13:34 Ondansetron HCl (Zofran) 4 mg Q4H PRN IVP Nausea & Vomiting 06/05/19 07:00 07/05/19 06:59 06/06/19 06:16 Oseltamivir Phosphate (Tamiflu) 75 mg Q12HR ORAL 06/05/19 09:00 06/10/19 08:59 06/06/19 08:27 Promethazine HCl/ Codeine (Phenergan with Codeine) 5 ml Q4H PRN ORAL For Cough 06/05/19 13:30 07/05/19 13:29 06/06/19 08:27 Allergies: Coded Allergies: No Known Allergies (Unverified , 05/16/19) ROS Limited/Unobtainable: No Constitutional: Reports: no symptoms HEENT: Reports: no symptoms Cardiovascular: Reports: no symptoms Respiratory: Reports: no symptoms Gastrointestinal/Abdominal: Reports: no symptoms Genitourinary: Reports: no symptoms Neurologic/Psychiatric: Reports: no symptoms Subjective 23 YO F admitted with fever and myalgias. Now viral syndrome. Cover for Int Med-DR Lerma Objective Last Vital Signs Date Time Temp Pulse Resp B/P (MAP) Pulse Ox O2 Delivery O2 Flow Rate FiO2 06/06/19 16:00 98.8 84 20 103/63 (76) 99 06/06/19 09:00 Room Air 06/06/19 07:32 21 Laboratory Tests Test 06/06/19 07:30 White Blood Count 2.2 K/UL (4.8-10.8) L Red Blood Count 4.34 M/UL (4.20-5.40) Hemoglobin 11.8 G/DL (12.0-16.0) L Hematocrit 34.3 % (37.0-47.0) L Mean Corpuscular Volume 79 FL (80-99) L Mean Corpuscular Hemoglobin 27.1 PG (27.0-31.0) Mean Corpuscular Hemoglobin Concent 34.4 G/DL (32.0-36.0) Red Cell Distribution Width 12.4 % (11.6-14.8) Platelet Count 131 K/UL (150-450) L Mean Platelet Volume 7.1 FL (6.5-10.1) Neutrophils (%) (Auto) % (45.0-75.0) Lymphocytes (%) (Auto) % (20.0-45.0) Monocytes (%) (Auto) % (1.0-10.0) Eosinophils (%) (Auto) % (0.0-3.0) Basophils (%) (Auto) % (0.0-2.0) Differential Total Cells Counted 100 Neutrophils % (Manual) 37 % (45-75) L Lymphocytes % (Manual) 54 % (20-45) H Monocytes % (Manual) 8 % (1-10) Eosinophils % (Manual) 1 % (0-3) Basophils % (Manual) 0 % (0-2) Band Neutrophils 0 % (0-8) Platelet Estimate Decreased L Platelet Morphology Normal Anisocytosis 1+ Microcytosis 1+ Erythrocyte Sedimentation Rate 14 MM/HR (0-20) Sodium Level 141 MMOL/L (136-145) Potassium Level 3.6 MMOL/L (3.5-5.1) Chloride Level 106 MMOL/L (98-107) Carbon Dioxide Level 27 MMOL/L (21-32) Anion Gap 8 mmol/L (5-15) Blood Urea Nitrogen 8 mg/dL (7-18) Creatinine 0.9 MG/DL (0.55-1.30) Estimat Glomerular Filtration Rate > 60 mL/min (>60) Glucose Level 127 MG/DL (74-106) H Calcium Level 8.2 MG/DL (8.5-10.1) L Phosphorus Level 3.1 MG/DL (2.5-4.9) Magnesium Level 1.6 MG/DL (1.8-2.4) L Total Bilirubin 0.2 MG/DL (0.2-1.0) Aspartate Amino Transf (AST/SGOT) 27 U/L (15-37) Alanine Aminotransferase (ALT/SGPT) 19 U/L (12-78) Alkaline Phosphatase 43 U/L (46-116) L C-Reactive Protein, Quantitative 1.6 mg/dL (0.00-0.90) H Pro-B-Type Natriuretic Peptide 121 pg/mL (0-125) Total Protein 6.2 G/DL (6.4-8.2) L Albumin 3.1 G/DL (3.4-5.0) L Globulin 3.1 g/dL Albumin/Globulin Ratio 1.0 (1.0-2.7) Microbiology Date/Time Source Procedure Growth Status 06/05/19 16:30 Nasopharynx - Final Complete 06/05/19 16:30 Nasopharynx - Final Complete Intake and Output 06/05/19 06/06/19 19:00 07:00 Intake Total 1095 ml 660 ml Balance 1095 ml 660 ml Intake Oral 240 ml 360 ml IV Total 855 ml 300 ml # Voids 1 Objective PHYSICAL EXAMINATION: GENERAL: The patient is a well-developed and well-nourished female, in no apparent distress. HEENT: Eyes, pupils are equal and responsive to light and accommodation. Extraocular movements are intact. NECK: Supple without lymphadenopathy. CHEST: Lungs are clear to auscultation bilaterally without wheezes or rales. CARDIOVASCULAR: Regular rhythm and rate. S1 and S2 are normal without murmurs, rubs, or gallops. ABDOMEN: Soft, nontender, and nondistended. Positive bowel sounds. No evidence of hepatosplenomegaly. Currently, no rebound or guarding noted. EXTREMITIES: Negative for clubbing, cyanosis, or edema. RECTAL/GENITAL: Refused. NEUROLOGIC: Cranial nerves II through XII are grossly intact without focal deficits. Motor strength is 5/5 bilaterally. Deep tendon reflexes are 2+ plantar. Assessment/Plan Assessment/Plan ASSESSMENT: This is a 23-year-old female. 1. Fever. 2. Myalgia. 3. Attention deficit hyperactivity disorder. 4. Polysubstance abuse TREATMENT: 1. Fever/myalgia. Blood cultures are pending. An Infectious Disease consultation has been obtained with Dr. Arrington. ABX=ceftriaxone and Tamiflu . We will follow recommendations of Infectious Disease. 2. Attention deficit hyperactivity disorder. Ritalin has been held during the hospitalization. 3. Polysubstance abuse. Patient admits to Ecstacy use. A urine was positive for methamphetamine and amphetamine. 4. Discharge planning Ryan Roca MD Jun 06, 2019 17:07
--- NOTE | 2019-06-06 19:17 | NUR ---
HAND-OFF: Report given to Larissa ARROYO RN.
--- NOTE | 2019-06-06 19:56 | NUR ---
NURSE NOTES: Received patient asleep in bed, easily arousable, c/o generalized body aches, will administer pain medication per MD order. IV access patent and asymptomatic. Bed low and locked. No s/s of acute distress.
[2019-06-06 20:00] VITALS: BP 105/65
[2019-06-07] VITALS: BP 112/54
[2019-06-07] MEDS: D5 1/2NS w/KCl 20mEq 1,000 ML IV SCH ×2 (00:05→11:12)
[2019-06-07 04:00] VITALS: BP 103/65
--- NOTE | 2019-06-07 07:18 | NUR ---
HAND-OFF: Report given to GEMINI Dior.
[2019-06-07 08:00] VITALS: BP_SYST 102; BP_SYST 113; BP_DIAS 64; BP_DIAS 77
[2019-06-07 08:18] LABS: HEMATOCRIT 36.6 % (37.0-47.0); HEMOGLOBIN 12.4 G/DL (12.0-16.0); MEAN CORPUSCULAR VOLUME 79 FL (80-99); PLATELET COUNT 140 K/UL (150-450); RED BLOOD COUNT 4.65 M/UL (4.20-5.40); RED CELL DISTRIBUTION WIDTH 12.4 % (11.6-14.8); WHITE BLOOD COUNT 2.5 K/UL (4.8-10.8)
[2019-06-07] MEDS: cefTRIAXone 1gm/D5W 55ml IVPB SCH ×2 (08:22)
[2019-06-07] MEDS: HYDROcodone/Acetamin 5/325 tab ORAL PRN (08:24)
[2019-06-07] MEDS: Oseltamivir 75mg cap ORAL SCH (08:24)
[2019-06-07 08:39] LABS: ANION GAP 7 mmol/L (5-15); BLOOD UREA NITROGEN 6 mg/dL (7-18); CALCIUM 8.5 MG/DL (8.5-10.1); CARBON DIOXIDE 28 MMOL/L (21-32); CHLORIDE 106 MMOL/L (98-107); CREATININE 0.9 MG/DL (0.55-1.30); POTASSIUM 4.3 MMOL/L (3.5-5.1); SODIUM 141 MMOL/L (136-145)
--- NOTE | 2019-06-07 09:47 | NUR ---
NURSE NOTES: pt in bed with no sob nor in any form of distress noted. Remains afebrile. pain meds given as need. Able to ambulate self. will continue to monitor
--- NOTE | 2019-06-07 12:01 | Pulmonology Progress Note ---
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 drugs can be dc from pulmonary standpoint, scripts per ID case discussed and evaluated by supervising physician Subjective Allergies: Coded Allergies: No Known Allergies (Unverified , 05/16/19) Subjective feeling much better, wants to go home afebrile less cough, no muscle aches mild leukopenia, slightly improved from yesterday, Objective Last 24 Hour Vital Signs Date Time Temp Pulse Resp B/P (MAP) Pulse Ox O2 Delivery O2 Flow Rate FiO2 06/07/19 09:39 Room Air 06/07/19 08:54 98.9 06/07/19 08:00 99.0 86 18 102/64 (77) 99 06/07/19 04:00 98.9 84 16 103/65 (78) 99 06/07/19 00:00 98.1 75 14 112/54 (73) 99 06/06/19 21:28 Room Air 06/06/19 20:00 99.0 92 20 105/65 (78) 99 06/06/19 20:00 92 18 98 Room Air 21 06/06/19 16:00 98.8 84 20 103/63 (76) 99 06/06/19 12:00 98.0 86 20 102/64 (77) 97 Intake and Output 06/06/19 06/07/19 19:00 07:00 Intake Total 2014 ml 700 ml Balance 2014 ml 700 ml Intake Oral 960 ml IV Total 1055 ml 700 ml # Voids 3 1 General Appearance: WD/WN, no acute distress HEENT: normocephalic, atraumatic, anicteric, mucous membranes moist Respiratory/Chest: lungs clear, no respiratory distress, no accessory muscle use Cardiovascular: normal peripheral pulses, normal rate Abdomen: normal bowel sounds, soft, non tender, non distended Extremities: no edema, pedal pulses normal Neurologic/Psychiatric: no motor/sensory deficits, alert, oriented x 3, responsive, normal mood/affect Musculoskeletal: normal muscle bulk Microbiology Date/Time Source Procedure Growth Status 2/3/20 17:45 Blood Blood Culture - Preliminary NO GROWTH AFTER 24 HOURS Resulted 06/05/19 17:40 Blood Blood Culture - Preliminary NO GROWTH AFTER 24 HOURS Resulted 06/05/19 16:30 Nasopharynx - Final Complete 06/05/19 16:30 Nasopharynx - Final Complete Laboratory Tests 06/07/19 08:00: White Blood Count 2.5L, Red Blood Count 4.65, Hemoglobin 12.4, Hematocrit 36.6L , Mean Corpuscular Volume 79L, Mean Corpuscular Hemoglobin 26.8L, Mean Corpuscular Hemoglobin Concent 34.0, Red Cell Distribution Width 12.4, Platelet Count 140L, Mean Platelet Volume 7.7, Neutrophils (%) (Auto) , Lymphocytes (%) ( Auto) , Monocytes (%) (Auto) , Eosinophils (%) (Auto) , Basophils (%) (Auto) , Differential Total Cells Counted 100, Neutrophils % (Manual) 13L, Lymphocytes % (Manual) 76H, Monocytes % (Manual) 8, Eosinophils % (Manual) 3, Basophils % ( Manual) 0, Band Neutrophils 0, Platelet Estimate DecreasedL, Platelet Morphology Normal, Sodium Level 141, Potassium Level 4.3, Chloride Level 106, Carbon Dioxide Level 28, Anion Gap 7, Blood Urea Nitrogen 6L, Creatinine 0.9, Estimat Glomerular Filtration Rate > 60, Glucose Level 98, Calcium Level 8.5 Current Medications Medications (Trade) Dose Ordered Sig/Jillian Route PRN Reason Start Time Stop Time Status Last Admin Dose Admin Acetaminophen (Tylenol) 650 mg Q6H PRN ORAL Mild Pain/Temp > 100.5 06/05/19 07:00 07/05/19 06:59 06/05/19 14:46 Acetaminophen/ Hydrocodone Bitart ([place] 5/325) 1 tab Q6H PRN ORAL Pain 4-10 06/05/19 07:00 06/12/19 06:59 06/07/19 08:24 Albuterol/ Ipratropium (Albuterol/ Ipratropium) 3 ml Q4H PRN HHN Shortness of Breath 06/05/19 13:30 06/10/19 13:29 06/06/19 07:39 Ceftriaxone Sodium 1 gm/ Dextrose 55 ml @ 110 mls/hr Q24H IVPB 06/05/19 09:00 06/12/19 08:59 06/07/19 08:22 Dextrose/ Electrolytes 1,000 ml @ 100 mls/hr Q10H IV 06/05/19 08:00 07/05/19 07:59 06/07/19 00:05 Ondansetron HCl (Zofran) 4 mg Q4H PRN IVP Nausea & Vomiting 06/05/19 07:00 07/05/19 06:59 06/07/19 08:25 Oseltamivir Phosphate (Tamiflu) 75 mg Q12HR ORAL 06/05/19 09:00 06/10/19 08:59 06/07/19 08:24 Promethazine HCl/ Codeine (Phenergan with Codeine) 5 ml Q4H PRN ORAL For Cough 06/05/19 13:30 07/05/19 13:29 06/06/19 21:01 Debbie Noriega [employer] TECHNICIAN Jun 07, 2019 12:01
--- NOTE | 2019-06-07 13:07 | Internal Med Progress Note ---
Subjective Date of Service: Jun 07, 2019 Physician Name Ryan Roca Attending Physician Ravi Lerma MD Current Medications Medications (Trade) Dose Ordered Sig/Jillian Route PRN Reason Start Time Stop Time Status Last Admin Dose Admin Acetaminophen (Tylenol) 650 mg Q6H PRN ORAL Mild Pain/Temp > 100.5 06/05/19 07:00 07/05/19 06:59 06/05/19 14:46 Acetaminophen/ Hydrocodone Bitart ([place] 5/325) 1 tab Q6H PRN ORAL Pain 4-10 06/05/19 07:00 06/12/19 06:59 06/07/19 08:24 Albuterol/ Ipratropium (Albuterol/ Ipratropium) 3 ml Q4H PRN HHN Shortness of Breath 06/05/19 13:30 06/10/19 13:29 06/06/19 07:39 Ceftriaxone Sodium 1 gm/ Dextrose 55 ml @ 110 mls/hr Q24H IVPB 06/05/19 09:00 06/12/19 08:59 06/07/19 08:22 Dextrose/ Electrolytes 1,000 ml @ 100 mls/hr Q10H IV 06/05/19 08:00 07/05/19 07:59 06/07/19 00:05 Ondansetron HCl (Zofran) 4 mg Q4H PRN IVP Nausea & Vomiting 06/05/19 07:00 07/05/19 06:59 06/07/19 08:25 Oseltamivir Phosphate (Tamiflu) 75 mg Q12HR ORAL 06/05/19 09:00 06/10/19 08:59 06/07/19 08:24 Promethazine HCl/ Codeine (Phenergan with Codeine) 5 ml Q4H PRN ORAL For Cough 06/05/19 13:30 07/05/19 13:29 06/06/19 21:01 Allergies: Coded Allergies: No Known Allergies (Unverified , 05/16/19) ROS Limited/Unobtainable: No Constitutional: Reports: no symptoms HEENT: Reports: no symptoms Cardiovascular: Reports: no symptoms Respiratory: Reports: no symptoms Gastrointestinal/Abdominal: Reports: no symptoms Genitourinary: Reports: no symptoms Subjective 23 YO F admitted with fever and myalgias. Now viral syndrome. Cover for Int Med-DR Lerma Objective Last Vital Signs Date Time Temp Pulse Resp B/P (MAP) Pulse Ox O2 Delivery O2 Flow Rate FiO2 06/07/19 09:39 Room Air 06/07/19 08:54 98.9 06/07/19 08:00 86 18 102/64 (77) 99 06/06/19 20:00 21 Laboratory Tests Test 06/07/19 08:00 White Blood Count 2.5 K/UL (4.8-10.8) L Red Blood Count 4.65 M/UL (4.20-5.40) Hemoglobin 12.4 G/DL (12.0-16.0) Hematocrit 36.6 % (37.0-47.0) L Mean Corpuscular Volume 79 FL (80-99) L Mean Corpuscular Hemoglobin 26.8 PG (27.0-31.0) L Mean Corpuscular Hemoglobin Concent 34.0 G/DL (32.0-36.0) Red Cell Distribution Width 12.4 % (11.6-14.8) Platelet Count 140 K/UL (150-450) L Mean Platelet Volume 7.7 FL (6.5-10.1) Neutrophils (%) (Auto) % (45.0-75.0) Lymphocytes (%) (Auto) % (20.0-45.0) Monocytes (%) (Auto) % (1.0-10.0) Eosinophils (%) (Auto) % (0.0-3.0) Basophils (%) (Auto) % (0.0-2.0) Differential Total Cells Counted 100 Neutrophils % (Manual) 13 % (45-75) L Lymphocytes % (Manual) 76 % (20-45) H Monocytes % (Manual) 8 % (1-10) Eosinophils % (Manual) 3 % (0-3) Basophils % (Manual) 0 % (0-2) Band Neutrophils 0 % (0-8) Platelet Estimate Decreased L Platelet Morphology Normal Sodium Level 141 MMOL/L (136-145) Potassium Level 4.3 MMOL/L (3.5-5.1) Chloride Level 106 MMOL/L (98-107) Carbon Dioxide Level 28 MMOL/L (21-32) Anion Gap 7 mmol/L (5-15) Blood Urea Nitrogen 6 mg/dL (7-18) L Creatinine 0.9 MG/DL (0.55-1.30) Estimat Glomerular Filtration Rate > 60 mL/min (>60) Glucose Level 98 MG/DL (74-106) Calcium Level 8.5 MG/DL (8.5-10.1) Microbiology Date/Time Source Procedure Growth Status 06/05/19 17:45 Blood Blood Culture - Preliminary NO GROWTH AFTER 24 HOURS Resulted 06/05/19 17:40 Blood Blood Culture - Preliminary NO GROWTH AFTER 24 HOURS Resulted 06/05/19 16:30 Nasopharynx - Final Complete 06/05/19 16:30 Nasopharynx - Final Complete Intake and Output 06/06/19 06/07/19 19:00 07:00 Intake Total 2015 ml 700 ml Balance 2015 ml 700 ml Intake Oral 960 ml IV Total 1055 ml 700 ml # Voids 3 1 Objective PHYSICAL EXAMINATION: GENERAL: The patient is a well-developed and well-nourished female, in no apparent distress. HEENT: Eyes, pupils are equal and responsive to light and accommodation. Extraocular movements are intact. NECK: Supple without lymphadenopathy. CHEST: Lungs are clear to auscultation bilaterally without wheezes or rales. CARDIOVASCULAR: Regular rhythm and rate. S1 and S2 are normal without murmurs, rubs, or gallops. ABDOMEN: Soft, nontender, and nondistended. Positive bowel sounds. No evidence of hepatosplenomegaly. Currently, no rebound or guarding noted. EXTREMITIES: Negative for clubbing, cyanosis, or edema. RECTAL/GENITAL: Refused. NEUROLOGIC: Cranial nerves II through XII are grossly intact without focal deficits. Motor strength is 5/5 bilaterally. Deep tendon reflexes are 2+ plantar. Assessment/Plan Assessment/Plan ASSESSMENT: This is a 23-year-old female. 1. Fever. 2. Myalgia. 3. Attention deficit hyperactivity disorder. 4. Polysubstance abuse 5. Viral syndrome TREATMENT: 1. Fever/myalgia/viral syndrome. Blood cultures=no growth. An Infectious Disease consultation has been obtained with Dr. Arrington. ABX=ceftriaxone and Tamiflu . We will follow recommendations of Infectious Disease. 2. Attention deficit hyperactivity disorder. Ritalin has been held during the hospitalization. 3. Polysubstance abuse. Patient admits to Ecstacy use. A urine was positive for methamphetamine and amphetamine. 4. Discharge planning Ryan Roca MD Jun 07, 2019 13:07
--- NOTE | 2019-06-07 13:26 | Infectious Diseases Prog Note ---
Assessment/Plan Assessment/Plan Abx: Tamiflu 2/3- Ceftriaxone 2/3- Assessment: Sepsis Influenza (per [facility] report) [place] [facility] [place] Fever; improvng Mild leukopenia -/ CXR: No acute findings -/3 Bcx NTD -u/a (at [facility]) neg -CXR (at [facility])- prelim read no infiltrates Mild anemia UDS + methamphetamines, amphetamines AHDD anxiety disorder Plan: -Continue Tamiflu #3/5 -d/c Ceftriaxone #3 -upon discharge will continue Tamiflu to complete 5 days of treatment -f/u cx -Monitor CBC/CMP, temperatures -f/u Bcx Thank you for this consultation. Will continue to follow along with you. Discussed with RN. Subjective Allergies: Coded Allergies: No Known Allergies (Unverified , 05/16/19) Subjective afebrile >36hrs b cx NTD discharge planning Objective Vital Signs Last 24 Hour Vital Signs Date Time Temp Pulse Resp B/P (MAP) Pulse Ox O2 Delivery O2 Flow Rate FiO2 06/07/19 09:39 Room Air 06/07/19 08:54 98.9 06/07/19 08:00 99.0 86 18 102/64 (77) 99 06/07/19 04:00 98.9 84 16 103/65 (78) 99 06/07/19 00:00 98.1 75 14 112/54 (73) 99 06/06/19 21:28 Room Air 06/06/19 20:00 99.0 92 20 105/65 (78) 99 06/06/19 20:00 92 18 98 Room Air 21 06/06/19 16:00 98.8 84 20 103/63 (76) 99 Height (Feet): 5 Height (Inches): 6.00 Weight (Pounds): 118 Objective GENERAL: The patient is a well-developed and well-nourished female, in no apparent distress. HEENT: Eyes, pupils are equal and responsive to light and accommodation. Extraocular movements are intact. NECK: Supple without lymphadenopathy. CHEST: Lungs are clear to auscultation bilaterally without wheezes or rales. CARDIOVASCULAR: Regular rhythm and rate. S1 and S2 are normal without murmurs, rubs, or gallops. ABDOMEN: Soft, nontender, and nondistended. Positive bowel sounds. No evidence of hepatosplenomegaly. Currently, no rebound or guarding noted. EXTREMITIES: Negative for clubbing, cyanosis, or edema. RECTAL/GENITAL: Refused. NEUROLOGIC: Cranial nerves II through XII are grossly intact without focal deficits. Motor strength is 5/5 bilaterally. Deep tendon reflexes are 2+ plantar. Microbiology Date/Time Source Procedure Growth Status 06/05/19 17:45 Blood Blood Culture - Preliminary NO GROWTH AFTER 24 HOURS Resulted 06/05/19 17:40 Blood Blood Culture - Preliminary NO GROWTH AFTER 24 HOURS Resulted 06/05/19 16:30 Nasopharynx - Final Complete 06/05/19 16:30 Nasopharynx - Final Complete Laboratory Tests Test 06/07/19 08:00 White Blood Count 2.5 K/UL (4.8-10.8) L Red Blood Count 4.65 M/UL (4.20-5.40) Hemoglobin 12.4 G/DL (12.0-16.0) Hematocrit 36.6 % (37.0-47.0) L Mean Corpuscular Volume 79 FL (80-99) L Mean Corpuscular Hemoglobin 26.8 PG (27.0-31.0) L Mean Corpuscular Hemoglobin Concent 34.0 G/DL (32.0-36.0) Red Cell Distribution Width 12.4 % (11.6-14.8) Platelet Count 140 K/UL (150-450) L Mean Platelet Volume 7.7 FL (6.5-10.1) Neutrophils (%) (Auto) % (45.0-75.0) Lymphocytes (%) (Auto) % (20.0-45.0) Monocytes (%) (Auto) % (1.0-10.0) Eosinophils (%) (Auto) % (0.0-3.0) Basophils (%) (Auto) % (0.0-2.0) Differential Total Cells Counted 100 Neutrophils % (Manual) 13 % (45-75) L Lymphocytes % (Manual) 76 % (20-45) H Monocytes % (Manual) 8 % (1-10) Eosinophils % (Manual) 3 % (0-3) Basophils % (Manual) 0 % (0-2) Band Neutrophils 0 % (0-8) Platelet Estimate Decreased L Platelet Morphology Normal Sodium Level 141 MMOL/L (136-145) Potassium Level 4.3 MMOL/L (3.5-5.1) Chloride Level 106 MMOL/L (98-107) Carbon Dioxide Level 28 MMOL/L (21-32) Anion Gap 7 mmol/L (5-15) Blood Urea Nitrogen 6 mg/dL (7-18) L Creatinine 0.9 MG/DL (0.55-1.30) Estimat Glomerular Filtration Rate > 60 mL/min (>60) Glucose Level 98 MG/DL (74-106) Calcium Level 8.5 MG/DL (8.5-10.1) Current Medications Medications (Trade) Dose Ordered Sig/Jillian Route PRN Reason Start Time Stop Time Status Last Admin Dose Admin Acetaminophen (Tylenol) 650 mg Q6H PRN ORAL Mild Pain/Temp > 100.5 06/05/19 07:00 07/05/19 06:59 06/05/19 14:46 Acetaminophen/ Hydrocodone Bitart ([place] 5/325) 1 tab Q6H PRN ORAL Pain 4-10 06/05/19 07:00 06/12/19 06:59 06/07/19 08:24 Albuterol/ Ipratropium (Albuterol/ Ipratropium) 3 ml Q4H PRN HHN Shortness of Breath 06/05/19 13:30 06/10/19 13:29 06/06/19 07:39 Ceftriaxone Sodium 1 gm/ Dextrose 55 ml @ 110 mls/hr Q24H IVPB 06/05/19 09:00 06/12/19 08:59 06/07/19 08:22 Dextrose/ Electrolytes 1,000 ml @ 100 mls/hr Q10H IV 06/05/19 08:00 07/05/19 07:59 06/07/19 00:05 Ondansetron HCl (Zofran) 4 mg Q4H PRN IVP Nausea & Vomiting 06/05/19 07:00 07/05/19 06:59 06/07/19 08:25 Oseltamivir Phosphate (Tamiflu) 75 mg Q12HR ORAL 06/05/19 09:00 06/10/19 08:59 06/07/19 08:24 Promethazine HCl/ Codeine (Phenergan with Codeine) 5 ml Q4H PRN ORAL For Cough 2/3/20 13:30 07/05/19 13:29 06/06/19 21:01 Radha Arrington M.D. Jun 07, 2019 13:26
[2019-06-07] MEDS ORDERED: TAMIFLU75 MG ORAL (14:27)
--- NOTE | 2019-06-07 15:46 | NUR ---
NURSE NOTES: pt discharged to home with stable condition. IV heplock removed and covered with gauze and taped. all discharge instruction given to pt and verbalized understanding. Rx given to pt. all belongings checked and signed. denies any pain. afebrile.
--- NOTE | 2019-06-07 16:06 | NUR ---
CASE MANAGEMENT:REVIEW 06/06/2019 SI;MYALGIAS. FEVER. 99.0 95 20 102/62 97% ON RA IS;DUO NEB HHN Q4 HRS PRN TAMIFLU PO Q12 HRS NORCO PO Q6 HRS MED SURG STATUS DCP;FROM HOME
--- NOTE | 2019-06-12 15:08 | Discharge Summary ---
Discharge Summary Discharge Summary _ DATE OF ADMISSION: 06/05/2019 DATE OF DISCHARGE: 06/07/2019 DISCHARGED BY: Dr. Lerma REASON FOR ADMISSION: 23 years old female with past medical history of attention deficit hyperactivity disorder, initially presented to [facility] with chief complaint of fevers and myalgia. Patient admitted taking ecstasy that day. Chest x-ray done in [place] revealed no acute cardiopulmonary pathology. Influenza swab reported positive ( no test results were seen though the chart though). Patient subsequently was transferred to [facility] for insurance purposes. CONSULTANTS: pulmonary Dr. Pappas ID specialist Dr. Arrington [facility] COURSE: At the [facility] influenza swab was negative. Patient was leukopenic with WBC 3.7 , hemoglobin 11.2 ,hematocrit 33.4, platelet count 162. Patient was placed on droplet precautions and started empirically on Tamiflu for reported positive influenza swab at [place]. Patient started on empiric antibiotics for probably superimposed pneumonia. Blood cultures were negative. Antitussive provided as needed. Patient remained leukopenic, fevers resolved. Pulse oximetry was stable on room air. Patient was counseled on abstinence from street drugs. Supportive care provided. Patient clinically improved and was ready for discharge home. Prescription for oseltamivir to complete the course , provided. FINAL DIAGNOSES: Sepsis Influenza A (per [place] report) Probably superimposed pneumonia Leukopenia Anemia Substance abuse/methamphetamine Attention deficit disorder DISCHARGE MEDICATIONS: See Medication Reconciliation list. DISCHARGE INSTRUCTIONS: Patient was discharged home . Follow-up with a primary care provider in 1 week. Debbie Noriega NP Jun 12, 2019 15:08
== END 2019-06-07 15:37 | disposition home or self-care (01) | DRG 871 ==
LOC: 4E 06-05 02:04
DX: A41.9 Sepsis, unspecified organism (principal); J10.00 Influenza due to other identified influenza virus with unspecified type of pneumonia; F90.9 Attention-deficit hyperactivity disorder, unspecified type; D64.9 Anemia, unspecified; F41.9 Anxiety disorder, unspecified; F15.10 Other stimulant abuse, uncomplicated
CPT/HCPCS: 36415; 71045; 80048; 80053; 83735; 83880; 84100; 85007; 85025; 85651; 86140; 86710; 87040; 94640; 94664; J2405; J7620